=== PATIENT | male | born 1990 | race Caucasian/White ===

== ENCOUNTER 2020-08-15 14:49 | Emergency (ER) | payer OTHER ==
[2020-08-15 15:01] VITALS: BP 134/84; PULSE 94; BMI 22.7
[2020-08-15] MEDS ORDERED: KETOROLAC TROMETHAMINE 60 MG/2 ML VIAL IM ONE (17:01)
[2020-08-15] MEDS ORDERED: KETOROLAC TROMETHAMINE 60 MG/2 ML VIAL ONE (17:08)
== END 2020-08-15 17:14 | disposition home or self-care (01) ==
LOC: JERFT 14:49
PROC: 3E0233Z Introduction of Anti-inflammatory into Muscle, Percutaneous Approach (ICD-10-PCS; principal; 2020-08-15)
DX: R51.9 Headache, unspecified (principal)
CPT/HCPCS: 70450-TC; 99284-25

== ENCOUNTER 2022-09-29 10:32 | Emergency (ER) | payer OTHER ==
[2022-09-29 10:43] VITALS: TEMP 98.5; BMI 22.7
[2022-09-29] MEDS ORDERED: ACETAMINOPHEN 500 MG TABLET (FP) PO ONE (11:03)
[2022-09-29] MEDS ORDERED: LIDOCAINE 5% TOPICAL PATCH TP ONE (11:04)
[2022-09-29] MEDS ORDERED: ACETAMINOPHEN 325 MG TABLET (FP) ONE (11:09)
[2022-09-29] MEDS ORDERED: LIDOCAINE 5% TOPICAL PATCH ONE (11:09)
[2022-09-29] MEDS ORDERED: METHOCARBAMOL 500 MG TABLET PO ONE (11:13)
[2022-09-29] MEDS ORDERED: METHOCARBAMOL 500 MG TABLET ONE (11:17)
[2022-09-29 12:12] VITALS: BP 130/80; PULSE 82; RESP 18
[2022-09-29] MEDS ORDERED: LIDOCAINE PATCH REMOVAL MC ONE (22:00)
== END 2022-09-29 12:24 | disposition home or self-care (01) ==
LOC: JER 10:32
DX: M54.50 Low back pain, unspecified (principal); X50.0XXA Overexertion from strenuous movement or load, initial encounter
CPT/HCPCS: 99283-25